=== PATIENT | female | born 1985 | race African-American/Black ===

== ENCOUNTER 2017-07-30 19:49 | Emergency (ER) | payer OTHER | END 2017-07-31 00:51 | disposition home or self-care (01) | LOC: ER 19:49 | DX: R51 Headache (principal); M25.551 Pain in right hip; M79.1 Myalgia; Z91.013 Allergy to seafood; Z91.012 Allergy to eggs; F31.9 Bipolar disorder, unspecified; V48.6XXA Car passenger injured in noncollision transport accident in traffic accident, initial encounter | CPT/HCPCS: 70450; 72170; 73502-RT; 96374; 99285; J2360 ==